=== PATIENT | female | born 1955 | race Caucasian/White ===

== ENCOUNTER 2019-05-16 22:26 | Emergency (ER) | payer MEDICARE, MEDICAID ==
[~2019-05-16] VITALS: Ht 162.6 cm; Wt 94.8 kg
[2019-05-16 22:29] VITALS: BP 161/108
[2019-05-17] MEDS ORDERED: chlordiazePOXIDE 25mg capsule PO ONE (00:40)
[2019-05-17] MEDS ORDERED: ondansetron 4mg rapidly disintigrating tab PO ONE (00:40)
== END 2019-05-17 01:46 | disposition home or self-care (01) ==
LOC: ER 22:27
DX: R11.10 Vomiting, unspecified (principal); R10.12 Left upper quadrant pain; Z88.2 Allergy status to sulfonamides
CPT/HCPCS: 93005; 99283